=== PATIENT | female | born 1995 | race Caucasian/White ===

== ENCOUNTER 2017-01-01 03:44 | Emergency (ER) | payer OTHER ==
[~2017-01-01] VITALS: Ht 160 cm; Wt 54.7 kg
[~2017-01-01 03:44] MED LIST: BCP
[2017-01-01] MEDS ORDERED: NORE1TAB85 PO (04:08)
[2017-01-01 05:25] LABS: HEMATOCRIT 39.4 % (34.6-47.8); HEMOGLOBIN 13.5 g/dL (11.7-16.4); WHITE BLOOD COUNT 7.1 x10^3/uL (3.4-10)
[2017-01-01 05:37] LABS: BLOOD UREA NITROGEN 9 mg/dL (7-18)
[2017-01-01 05:41] LABS: ASPARTATE AMINO TRANSFERASE 10 U/L (15-37)
[2017-01-01 06:02] VITALS: BP 121/67
== END 2017-01-01 06:33 | disposition home or self-care (01) ==
LOC: ED 05:07
DX: K62.5 Hemorrhage of anus and rectum (principal); R19.7 Diarrhea, unspecified; K92.1 Melena
CPT/HCPCS: 36415; 80053; 85025; 99284